=== PATIENT | female | born 1995 | race Caucasian/White ===

== ENCOUNTER 2022-06-29 14:44 | Emergency (ER) | payer MEDICAID ==
[~2022-06-29] VITALS: Ht 154.9 cm; Wt 74.1 kg
[~2022-06-29 14:44] MED LIST: ALPR-623 PO; LORA1TAB PO; METO10TA3 PO; ONDA4TAB59 PO
[2022-06-29 15:52] LABS: URINE HCG NEGATIVE (NEG)
[2022-06-29 15:58] LABS: BASOPHILS % (AUTO) 0.4 % (0-1); EOSINOPHILS # (AUTO) 0.3 X10'3 (0-0.9); EOSINOPHILS % (AUTO) 3.9 % (0-6); HEMOGLOBIN 13.6 g/dl (12.0-16.0); LYMPHOCYTES # (AUTO) 1.6 X10'3 (1.1-4.8); LYMPHOCYTES % (AUTO) 19.8 % (21-51); MEAN CORPUSCULAR HEMOGLOBIN 29.6 PG (27.0-31.0); MEAN CORPUSCULAR HGB CONC 34.1 g/dL (33.0-36.5); MEAN CORPUSCULAR VOLUME 86.8 FL (78-98); MEAN PLATELET VOLUME 9.2 FL (7.4-10.4); MONOCYTES % (AUTO) 12.1 % (2-12); NEUTROPHILS # (AUTO) 5.2 X10'3 (1.8-7.7); NEUTROPHILS % (AUTO) 63.8 % (42-75); PLATELET COUNT 217 X10'3 (140-440); RED BLOOD COUNT 4.61 X10'6 (4.20-5.60); WHITE BLOOD COUNT 8.1 X10'3 (4.5-11.0)
[2022-06-29 16:02] LABS: CLARITY,URINE CLEAR (Clear); COLOR,URINE YELLOW (Yellow); GLUCOSE, URINE NEGATIVE (Neg); KETONES,URINE NEGATIVE (Neg); LEUKOCYTE ESTERASE ,URINE NEGATIVE (Neg); NITRITES, URINE NEGATIVE (Neg); OCCULT BLOOD,URINE TRACE-INTACT (Neg); PH,URINE 6.5 (4.8-8.0); PROTEIN,URINE NEGATIVE (Neg); UROBILINOGEN,URINE 0.2 E.U/dL (0.2-1.0)
[2022-06-29 16:06] LABS: UA COLLECTION TYPE CLN CATCH MIDSTREAM
[2022-06-29 16:12] LABS: MUCUS STRANDS FEW /LPF (Neg); SQUAMOUS EPITHELIAL CELL,UR FEW /LPF (FEW)
[2022-06-29 16:13] LABS: BACTERIA,URINE FEW /HPF (Neg); RBC,URINE 0-2 /HPF (0-2); WBC,URINE 0-4 /HPF (0-4)
[2022-06-29 16:16] LABS: ALANINE AMINOTRANSFERASE 15 U/L (12-78); ALBUMIN/GLOBULIN RATIO 1.1 (1.1-1.5); ALKALINE PHOSPHATASE 91 IU/L (46-116); ANION GAP 6 (8-16); ASPARTATE AMINO TRANSFERASE 22 U/L (10-37); BILIRUBIN,TOTAL 0.3 MG/DL (0.1-1.0); BLOOD UREA NITROGEN 9 MG/DL (7-18); BUN/CREATININE RATIO 12.3 (6.6-38.0); CALCIUM 8.4 MG/DL (8.5-10.1); CHLORIDE 105 MMOL/L (99-107); CREATININE 0.73 MG/DL (0.40-0.90); GLUCOSE 81 MG/DL (70-104); LIPASE 94 U/L (73-393); POTASSIUM 3.6 MMOL/L (3.5-5.1); SODIUM 138 MMOL/L (135-145); TOTAL CARBON DIOXIDE 26.8 MMOL/L (24-32); TOTAL PROTEIN 7.5 G/DL (6.4-8.2); eGFR > 90 ML/MIN
[2022-06-29] MEDS ORDERED: iohexol 300mg/ml 100ml inj. ONE (17:48)
[2022-06-29] MEDS ORDERED: fentaNYL/PF 50MCG/1 ML 2ML syringe IV ONE (18:40)
[2022-06-29] MEDS ORDERED: ondansetron/PF 4mg/2ml inj IV ONE (18:40)
[2022-06-29 18:50] VITALS: BP 111/67
[2022-06-29] MEDS ORDERED: HYDROcodone/acetaminophen 10/325mg tab PO ONE (18:50)
== END 2022-06-29 22:30 | disposition home or self-care (01) ==
LOC: ER 14:45
DX: D26.9 Other benign neoplasm of uterus, unspecified (principal); Z20.822 Contact with and (suspected) exposure to COVID-19; R10.32 Left lower quadrant pain; J45.909 Unspecified asthma, uncomplicated; F41.9 Anxiety disorder, unspecified; G89.29 Other chronic pain; F15.90 Other stimulant use, unspecified, uncomplicated; F11.90 Opioid use, unspecified, uncomplicated; Z90.49 Acquired absence of other specified parts of digestive tract; Z98.890 Other specified postprocedural states; Z88.5 Allergy status to narcotic agent; Z79.899 Other long term (current) drug therapy
CPT/HCPCS: 36415; 74177; 80053; 81001; 81025; 83690; 85025; 87635; 96374; 99285; C9803; J2405; J3490; Q9967

== ENCOUNTER 2022-09-07 21:44 | Emergency (ER) | payer MEDICAID ==
[~2022-09-07] VITALS: Ht 154.9 cm; Wt 74.1 kg
[2022-09-07 22:11] LABS: BASOPHILS % (AUTO) 0.3 % (0-1); EOSINOPHILS # (AUTO) 0.2 X10'3 (0-0.9); EOSINOPHILS % (AUTO) 3.1 % (0-6); HEMATOCRIT 40.2 % (35.0-45.0); HEMOGLOBIN 13.5 g/dl (12.0-16.0); LYMPHOCYTES # (AUTO) 2.4 X10'3 (1.1-4.8); LYMPHOCYTES % (AUTO) 29.2 % (21-51); MEAN CORPUSCULAR HEMOGLOBIN 29.8 PG (27.0-31.0); MEAN CORPUSCULAR HGB CONC 33.6 g/dL (33.0-36.5); MEAN CORPUSCULAR VOLUME 88.7 FL (78-98); MEAN PLATELET VOLUME 8.6 FL (7.4-10.4); MONOCYTES # (AUTO) 0.7 X10'3 (0-0.9); MONOCYTES % (AUTO) 8.7 % (2-12); NEUTROPHILS # (AUTO) 4.7 X10'3 (1.8-7.7); NEUTROPHILS % (AUTO) 58.7 % (42-75); PLATELET COUNT 255 X10'3 (140-440); RED BLOOD COUNT 4.53 X10'6 (4.20-5.60); RED CELL DISTRIBUTION WIDTH 13.8 % (11.5-14.5); WHITE BLOOD COUNT 8.1 X10'3 (4.5-11.0)
[2022-09-07 22:14] LABS: URINE HCG NEGATIVE (NEG)
[2022-09-07 22:15] LABS: CLARITY,URINE CLOUDY (Clear); COLOR,URINE YELLOW (Yellow); GLUCOSE, URINE NEGATIVE (Neg); KETONES,URINE NEGATIVE (Neg); LEUKOCYTE ESTERASE ,URINE NEGATIVE (Neg); NITRITES, URINE NEGATIVE (Neg); OCCULT BLOOD,URINE TRACE-INTACT (Neg); PROTEIN,URINE NEGATIVE (Neg); UROBILINOGEN,URINE 0.2 E.U/dL (0.2-1.0)
[2022-09-07 22:16] LABS: UA COLLECTION TYPE CLN CATCH MIDSTREAM
[2022-09-07 22:21] LABS: BACTERIA,URINE NONE SEEN /HPF (Neg); RBC,URINE 0-2 /HPF (0-2); SQUAMOUS EPITHELIAL CELL,UR MANY /LPF (FEW); WBC,URINE 0-4 /HPF (0-4)
[2022-09-07 22:34] LABS: ALANINE AMINOTRANSFERASE 14 U/L (12-78); ALBUMIN 4.1 G/DL (3.4-5.0); ALBUMIN/GLOBULIN RATIO 1.1 (1.1-1.5); ALKALINE PHOSPHATASE 78 IU/L (46-116); ANION GAP 8 (8-16); ASPARTATE AMINO TRANSFERASE 18 U/L (10-37); BILIRUBIN,TOTAL 0.4 MG/DL (0.1-1.0); BLOOD UREA NITROGEN 11 MG/DL (7-18); BUN/CREATININE RATIO 15.5 (10.0-20.0); CALCIUM 8.6 MG/DL (8.5-10.1); CHLORIDE 104 MMOL/L (99-107); CREATININE 0.71 MG/DL (0.40-0.90); GLUCOSE 84 MG/DL (70-104); LIPASE 63 U/L (73-393); POTASSIUM 3.8 MMOL/L (3.5-5.1); SODIUM 137 MMOL/L (135-145); TOTAL CARBON DIOXIDE 24.6 MMOL/L (24-32); TOTAL PROTEIN 7.7 G/DL (6.4-8.2); eGFR > 90 ML/MIN
[2022-09-08] MEDS ORDERED: ondansetron 4mg rapidly disintigrating tab PO ONE (02:05)
[2022-09-08] MEDS ORDERED: HYDROcodone/acetaminophen 5mg/325mg tablet PO ONE (02:05)
[2022-09-08] MEDS ORDERED: ketorolac trometh inj. 60 MG/2 ML VIAL IM ONE (02:45)
[2022-09-08] MEDS ORDERED: DICY10CA14 PO (04:00)
[2022-09-08] MEDS ORDERED: PHEN16.234 PO (04:00)
[2022-09-08] MEDS ORDERED: phenobarb/hyoscy/atropine/scop (Donnatal) 16.2mg tablet PO PRN (04:10)
[2022-09-08 04:23] VITALS: BP 128/68
== END 2022-09-08 04:27 | disposition home or self-care (01) ==
LOC: ER 21:45
DX: R10.9 Unspecified abdominal pain (principal); R11.2 Nausea with vomiting, unspecified; F41.9 Anxiety disorder, unspecified; J45.909 Unspecified asthma, uncomplicated; G89.29 Other chronic pain; F12.10 Cannabis abuse, uncomplicated; Z88.5 Allergy status to narcotic agent; Z79.899 Other long term (current) drug therapy
CPT/HCPCS: 36415; 76700; 80053; 81001; 81025; 83690; 85025; 96372; 99285; J1885

== ENCOUNTER 2022-09-09 20:54 | Emergency (ER) | payer MEDICAID ==
[~2022-09-09] VITALS: Ht 154.9 cm; Wt 74.0 kg
[~2022-09-09 20:54] MED LIST changes: +DICY10CA14 PO; +PHEN16.234 PO
[2022-09-09 20:57] VITALS: BP 125/76
[2022-09-09 21:34] LABS: BASOPHILS % (AUTO) 0.4 % (0-1); EOSINOPHILS # (AUTO) 0.3 X10'3 (0-0.9); HEMATOCRIT 36.8 % (35.0-45.0); HEMOGLOBIN 12.4 g/dl (12.0-16.0); LYMPHOCYTES # (AUTO) 2.1 X10'3 (1.1-4.8); LYMPHOCYTES % (AUTO) 24.1 % (21-51); MEAN CORPUSCULAR HEMOGLOBIN 29.8 PG (27.0-31.0); MEAN CORPUSCULAR HGB CONC 33.9 g/dL (33.0-36.5); MEAN CORPUSCULAR VOLUME 88.1 FL (78-98); MEAN PLATELET VOLUME 8.5 FL (7.4-10.4); MONOCYTES # (AUTO) 0.7 X10'3 (0-0.9); MONOCYTES % (AUTO) 8.6 % (2-12); NEUTROPHILS # (AUTO) 5.5 X10'3 (1.8-7.7); NEUTROPHILS % (AUTO) 63.9 % (42-75); PLATELET COUNT 245 X10'3 (140-440); RED BLOOD COUNT 4.17 X10'6 (4.20-5.60); RED CELL DISTRIBUTION WIDTH 13.4 % (11.5-14.5); WHITE BLOOD COUNT 8.6 X10'3 (4.5-11.0)
[2022-09-09 21:46] LABS: ALANINE AMINOTRANSFERASE 11 U/L (12-78); ALBUMIN 3.7 G/DL (3.4-5.0); ALBUMIN/GLOBULIN RATIO 1.2 (1.1-1.5); ALKALINE PHOSPHATASE 79 IU/L (46-116); ANION GAP 8 (8-16); ASPARTATE AMINO TRANSFERASE 16 U/L (10-37); BILIRUBIN,TOTAL 0.2 MG/DL (0.1-1.0); BLOOD UREA NITROGEN 14 MG/DL (7-18); BUN/CREATININE RATIO 21.5 (10.0-20.0); CALCIUM 8.3 MG/DL (8.5-10.1); CHLORIDE 105 MMOL/L (99-107); CREATININE 0.65 MG/DL (0.40-0.90); GLUCOSE 89 MG/DL (70-104); LIPASE 87 U/L (73-393); SODIUM 140 MMOL/L (135-145); TOTAL CARBON DIOXIDE 27.4 MMOL/L (24-32); TOTAL PROTEIN 6.9 G/DL (6.4-8.2); eGFR > 90 ML/MIN
[2022-09-09] MEDS ORDERED: mag hydrox/Alum hydrox/simeth 30ml oral suspension PO ONE (23:00)
[2022-09-09] MEDS ORDERED: dicyclomine 10 MG capsule PO ONE (23:00)
[2022-09-09] MEDS ORDERED: LIDOcaine Viscous 15ml cup TP ONE (23:00)
[2022-09-09 23:02] LABS: URINE HCG NEGATIVE (NEG)
[2022-09-09] MEDS ORDERED: iohexol 300mg/ml 100ml inj. ONE (23:03)
[2022-09-09 23:08] LABS: CLARITY,URINE SLIGHTLY CLOUDY (Clear); COLOR,URINE YELLOW (Yellow); GLUCOSE, URINE NEGATIVE (Neg); KETONES,URINE NEGATIVE (Neg); LEUKOCYTE ESTERASE ,URINE NEGATIVE (Neg); NITRITES, URINE NEGATIVE (Neg); OCCULT BLOOD,URINE NEGATIVE (Neg); PH,URINE 6.5 (4.8-8.0); PROTEIN,URINE NEGATIVE (Neg); UROBILINOGEN,URINE 0.2 E.U/dL (0.2-1.0)
[2022-09-09 23:20] LABS: UA COLLECTION TYPE CLN CATCH MIDSTREAM
[2022-09-09 23:22] LABS: BACTERIA,URINE 1+ /HPF (Neg); MUCUS STRANDS MODERATE /LPF (Neg); RBC,URINE NONE SEEN /HPF (0-2); SQUAMOUS EPITHELIAL CELL,UR MANY /LPF (FEW); WBC,URINE 0-4 /HPF (0-4)
== END 2022-09-10 03:00 | disposition home or self-care (01) ==
LOC: ER 20:55
DX: R10.31 Right lower quadrant pain (principal); R11.0 Nausea; G89.29 Other chronic pain; J45.909 Unspecified asthma, uncomplicated; F10.90 Alcohol use, unspecified, uncomplicated; Z90.49 Acquired absence of other specified parts of digestive tract; Z98.890 Other specified postprocedural states; Z88.5 Allergy status to narcotic agent; Z79.899 Other long term (current) drug therapy
CPT/HCPCS: 36415; 74177; 80053; 81001; 81025; 83690; 85025; 99285; Q9967

== ENCOUNTER 2022-10-23 06:50 | Emergency (ER) | payer MEDICAID ==
[~2022-10-23] VITALS: Ht 154.9 cm; Wt 78.6 kg
[~2022-10-23 06:50] MED LIST changes: -ALPR-623 PO; +BUSP10TA10 PO; -DICY10CA14 PO; +DICY10CA88 PO; +ESCI20TA39 PO; -LORA1TAB PO; -METO10TA3 PO; +NICO-907 BC; -ONDA4TAB59 PO; +PRAZ1CAP5 PO; +TRAZ-251 PO
[2022-10-23] MEDS ORDERED: ketorolac trometh inj. 60 MG/2 ML VIAL IM ONE (08:35)
[2022-10-23] MEDS ORDERED: acetaminophen 325mg tablet PO ONE (08:35)
[2022-10-23] MEDS ORDERED: IBUP-1984 PO (08:38)
[2022-10-23] MEDS ORDERED: PRED20TA PO (08:38)
[2022-10-23] MEDS ORDERED: ACET-1025 PO (08:38)
[2022-10-23 09:00] VITALS: BP 130/78
== END 2022-10-23 09:03 | disposition home or self-care (01) ==
LOC: ER 06:51
DX: M79.602 Pain in left arm (principal); J45.909 Unspecified asthma, uncomplicated; F12.90 Cannabis use, unspecified, uncomplicated; Z91.09 Other allergy status, other than to drugs and biological substances; Z88.5 Allergy status to narcotic agent; Z98.890 Other specified postprocedural states
CPT/HCPCS: 96372; 99283; J1885

== ENCOUNTER 2022-11-07 00:47 | Emergency (ER) | payer MEDICAID ==
[~2022-11-07] VITALS: Ht 154.9 cm; Wt 74.0 kg
[~2022-11-07 00:47] MED LIST changes: +IBUP-1984 PO
[2022-11-07] MEDS ORDERED: Melatonin 3mg tablet PO ONE (01:40)
[2022-11-07] MEDS ORDERED: metoclopramide 10mg tablet PO ONE (01:40)
[2022-11-07] MEDS ORDERED: diphenhydrAMINE 25mg capsule PO ONE (01:40)
--- NOTE | 2022-11-07 06:45 | NUR ---
PT RESTING IN BED QUIETLY ,NO DISTRESS NTED ,WILL CONTTO MONITOR.
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
[2022-11-07 07:34] VITALS: BP 132/64
== END 2022-11-07 07:37 | disposition home or self-care (01) ==
LOC: ER 00:48
DX: F41.9 Anxiety disorder, unspecified (principal); F10.129 Alcohol abuse with intoxication, unspecified; J45.909 Unspecified asthma, uncomplicated; F12.90 Cannabis use, unspecified, uncomplicated; G89.29 Other chronic pain; Z90.49 Acquired absence of other specified parts of digestive tract; Z72.89 Other problems related to lifestyle; Z98.890 Other specified postprocedural states; Z88.5 Allergy status to narcotic agent; Z88.8 Allergy status to other drugs, medicaments and biological substances; Z79.899 Other long term (current) drug therapy; Y90.9 Presence of alcohol in blood, level not specified
CPT/HCPCS: 99284; Q0163

== ENCOUNTER 2022-11-23 01:37 | Emergency (ER) | payer MEDICAID ==
[~2022-11-23] VITALS: Ht 154.9 cm; Wt 74.1 kg
[2022-11-23 02:10] LABS: URINE HCG NEGATIVE (NEG)
[2022-11-23 02:16] LABS: COLOR,URINE YELLOW (Yellow); GLUCOSE, URINE NEGATIVE (Neg); KETONES,URINE NEGATIVE (Neg); LEUKOCYTE ESTERASE ,URINE NEGATIVE (Neg); NITRITES, URINE NEGATIVE (Neg); OCCULT BLOOD,URINE SMALL (Neg); PROTEIN,URINE NEGATIVE (Neg); UROBILINOGEN,URINE 0.2 E.U/dL (0.2-1.0)
[2022-11-23 02:16] LABS: BASOPHILS # (AUTO) 0.1 X10'3 (0-0.2); BASOPHILS % (AUTO) 0.4 % (0-1); EOSINOPHILS # (AUTO) 0.1 X10'3 (0-0.9); HEMATOCRIT 42.8 % (35.0-45.0); HEMOGLOBIN 14.3 g/dl (12.0-16.0); LYMPHOCYTES # (AUTO) 3.7 X10'3 (1.1-4.8); LYMPHOCYTES % (AUTO) 27.3 % (21-51); MEAN CORPUSCULAR HEMOGLOBIN 28.8 PG (27.0-31.0); MEAN CORPUSCULAR HGB CONC 33.4 g/dL (33.0-36.5); MEAN CORPUSCULAR VOLUME 86.3 FL (78-98); MEAN PLATELET VOLUME 7.9 FL (7.4-10.4); MONOCYTES # (AUTO) 1.2 X10'3 (0-0.9); MONOCYTES % (AUTO) 8.7 % (2-12); NEUTROPHILS # (AUTO) 8.5 X10'3 (1.8-7.7); NEUTROPHILS % (AUTO) 62.6 % (42-75); PLATELET COUNT 299 X10'3 (140-440); RED BLOOD COUNT 4.96 X10'6 (4.20-5.60); RED CELL DISTRIBUTION WIDTH 13.8 % (11.5-14.5); WHITE BLOOD COUNT 13.6 X10'3 (4.5-11.0)
[2022-11-23 02:17] LABS: ALANINE AMINOTRANSFERASE 21 U/L (12-78); ALBUMIN 4.2 G/DL (3.4-5.0); ALBUMIN/GLOBULIN RATIO 1.2 (1.1-1.5); ALKALINE PHOSPHATASE 84 IU/L (46-116); ANION GAP 14 (8-16); ASPARTATE AMINO TRANSFERASE 20 U/L (10-37); BILIRUBIN,TOTAL 0.3 MG/DL (0.1-1.0); BLOOD UREA NITROGEN 8 MG/DL (7-18); BUN/CREATININE RATIO 9.4 (10.0-20.0); CALCIUM 8.5 MG/DL (8.5-10.1); CHLORIDE 107 MMOL/L (99-107); CREATININE 0.85 MG/DL (0.40-0.90); ETHANOL 0.249 GM/DL (0.0-0.010); GLUCOSE 95 MG/DL (70-104); POTASSIUM 3.2 MMOL/L (3.5-5.1); SODIUM 141 MMOL/L (135-145); TOTAL CARBON DIOXIDE 20.3 MMOL/L (24-32); TOTAL PROTEIN 7.8 G/DL (6.4-8.2); eGFR 79 ML/MIN
[2022-11-23 02:23] LABS: UA COLLECTION TYPE CLN CATCH MIDSTREAM
[2022-11-23 02:25] LABS: CLARITY,URINE SLIGHTLY CLOUDY (Clear)
[2022-11-23 02:28] LABS: BACTERIA,URINE FEW /HPF (Neg); SQUAMOUS EPITHELIAL CELL,UR FEW /LPF (FEW); WBC,URINE 0-4 /HPF (0-4)
[2022-11-23] MEDS ORDERED: LORazepam 2 mg/ml vial IM STA (02:28)
[2022-11-23 02:29] LABS: MUCUS STRANDS NONE SEEN /LPF (Neg)
[2022-11-23 02:30] LABS: URINE AMPHETAMINE SCREEN NEGATIVE (Neg); URINE BARBITUATE SCREEN NEGATIVE (Neg); URINE BENZODIAZEPINES SCREEN NEGATIVE (Neg); URINE CANNABINOID SCREEN POSITIVE (Neg); URINE COCAINE SCREEN POSITIVE (Neg); URINE METHADONE SCREEN NEGATIVE (Neg); URINE OPIATE SCREEN NEGATIVE (Neg); URINE PHENCYCLIDINE SCREEN NEGATIVE (Neg)
[2022-11-23] MEDS ORDERED: TETanus/Pertussis (Acell)/Diphther VAC/PF (Tdap-Adult) 0.5ml syringe IMVAC ONE (02:30)
[2022-11-23] MEDS ORDERED: bacitracin 15gm ointment TP STA (02:34)
--- NOTE | 2022-11-23 02:58 | NUR ---
PT IS PERSISTANTLY ASKING TO CALL MOTHER. PT HAS BEEN INFORMED THAT SHE CAN CALL HER MOTHER IN THE MORNING. PT IS HYSTERICAL AND TALKING TO HERSELF IN THE ROOM. PT HAS RECIEVED 2MG ATIVAN IM FOR ANXIETY/AGITATION. PTS WOUNDS HAVE BEEN CLEANED AND BANDAGED.
--- NOTE | 2022-11-23 07:10 | NUR ---
Pt. ambulated over to ER Overflow from the main ER accompanied by Tech. She is in bed sleeping at this time, rr are even and unlabored.
[2022-11-23] MEDS ORDERED: acetaminophen 325mg tablet PO ONE (08:20)
[2022-11-23] MEDS ORDERED: POTASSIUM BICARB 20meq eff tab 20 MEQ TABLET.EFF PO ONE (08:20)
--- NOTE | 2022-11-23 08:49 | NUR ---
[facility] RECIEVED PT PACKET
--- NOTE | 2022-11-23 09:00 | NUR ---
Pt. had a decreased potassium level of 3.2 and this was endorsed to Dr. Barrett and received orders for 40mEq of potassium. Pt. also complained of pain in her right hand due to the abrasion she received at this area from previously punching a mirror and she was provided with 650mg of Tylenol with effectiveness. Abrasion on top of pt's right hand appears to be healing well and no open areas or s/s of infection were noted. Antibiotic ointment and a Band Aide were applied. 1:1 was completed at bedside, and pt. was cooperative with assessment. She continues to endorse S/I with a plan to overdose, and states, "I've just been really going through it lately." Pt. reports she had a similar episode in September of this year. Pt. was evaluated for any signs and symptoms of alcohol withdrawal and none were found to be present. Pt's v/s are WNL, she does not exhibit any anxiety, denies headache, no tremors present, and pt. denies any auditory or visual hallucinations. She continues to nap comfortably, will continue to monitor pt. closely.
--- NOTE | 2022-11-23 09:15 | NUR ---
FAXED 1190 FORM .
--- NOTE | 2022-11-23 10:18 | NUR ---
Pt's mother is at bedside visiting at this time.
[2022-11-23] MEDS ORDERED: NO HOME MEDS (10:24)
--- NOTE | 2022-11-23 11:00 | NUR ---
Pt. is napping at this time, rise and fall of chest noted.
--- NOTE | 2022-11-23 13:00 | NUR ---
Pt. is laying in bed awake at this time, no s/s of distress noted.
--- NOTE | 2022-11-23 14:26 | NUR ---
pt sleeping on right side, equal, non-labored respirations.
--- NOTE | 2022-11-23 14:51 | NUR ---
[facility] AT BEDSIDE EVALUATING PT.
[2022-11-23 16:00] VITALS: BP 126/85
--- NOTE | 2022-11-23 17:00 | NUR ---
Pt. is sitting up eating dinner at this time.
--- NOTE | 2022-11-23 17:46 | NUR ---
[facility] called regarding possible placement for patient. Addendum: 11/23/22 at 1756 by JUNE Pt. has been accepted.
--- NOTE | 2022-11-23 18:06 | NUR ---
TSH lab faxed to [facility] per request. Pt. was accepted at [facility] and will be leaving tomorrow morning. They will call back with a time. Accepting MD is Win Sol Fan.
[2022-11-23] MEDS ORDERED: chlordiazePOXIDE 25mg capsule PO ONE (21:20)
--- NOTE | 2022-11-23 21:20 | NUR ---
PT C/O FEELING ANXIOUS, SHAKEY, INSOMNIA. PT SAID SHE BINGE DRINKS, HAS BEEN DRINKING 750ML KIRILL, VODKA, A DAY FOR 3 WEEKS, LAST DRINK WAS YESTERDAY, DR ARSHAD AWARE AND WILL PLACE ORDER. PT SAID SHE STILL FEELS SUICIDAL AND PLANS TO OD ON MEDS. PT SAID SHE HAS BEEN OFF MEDS FOR 30 DAYS. PT IS TEARFUL, CALM, COOPERATIVE
--- NOTE | 2022-11-23 21:23 | NUR ---
PT IS GETTING DRESSED, [facility]
== END 2022-11-23 21:41 | disposition still patient (30) ==
LOC: ER 01:37
DX: R45.851 Suicidal ideations (principal); Z20.822 Contact with and (suspected) exposure to COVID-19; F10.129 Alcohol abuse with intoxication, unspecified; F19.10 Other psychoactive substance abuse, uncomplicated; Y90.9 Presence of alcohol in blood, level not specified; F41.9 Anxiety disorder, unspecified; G89.29 Other chronic pain; F12.10 Cannabis abuse, uncomplicated; Z90.49 Acquired absence of other specified parts of digestive tract; Z79.899 Other long term (current) drug therapy; Z88.5 Allergy status to narcotic agent
CPT/HCPCS: 36415; 80053; 80305; 80320; 81001; 81025; 84443; 85025; 87811; 90471; 90715; 96372; 99285; J2060

== ENCOUNTER 2023-06-11 17:38 | Emergency (ER) | payer MEDICAID ==
[~2023-06-11] VITALS: Ht 152.4 cm; Wt 96.0 kg
[~2023-06-11 17:38] MED LIST changes: -BUSP10TA10 PO; -DICY10CA88 PO; -ESCI20TA39 PO; -IBUP-1984 PO; -NICO-907 BC; +NO HOME MEDS; -PHEN16.234 PO; -PRAZ1CAP5 PO; -TRAZ-251 PO
[2023-06-11] MEDS ORDERED: normal saline 1000ML IV soln IVB ONE (18:25)
[2023-06-11 19:11] LABS: BASOPHILS # (AUTO) 0.1 X10'3 (0-0.2); BASOPHILS % (AUTO) 1.6 % (0-1); EOSINOPHILS # (AUTO) 0.1 X10'3 (0-0.9); EOSINOPHILS % (AUTO) 1.2 % (0-6); HEMOGLOBIN 15.3 g/dl (12.0-16.0); LYMPHOCYTES % (AUTO) 23.5 % (21-51); MEAN CORPUSCULAR HEMOGLOBIN 29.3 PG (27.0-31.0); MEAN CORPUSCULAR HGB CONC 32.6 g/dL (33.0-36.5); MEAN CORPUSCULAR VOLUME 90.1 FL (78-98); MEAN PLATELET VOLUME 8.1 FL (7.4-10.4); MONOCYTES # (AUTO) 0.8 X10'3 (0-0.9); MONOCYTES % (AUTO) 9.5 % (2-12); NEUTROPHILS # (AUTO) 5.6 X10'3 (1.8-7.7); NEUTROPHILS % (AUTO) 64.2 % (42-75); PLATELET COUNT 302 X10'3 (140-440); RED BLOOD COUNT 5.21 X10'6 (4.20-5.60); RED CELL DISTRIBUTION WIDTH 15.9 % (11.5-14.5); WHITE BLOOD COUNT 8.7 X10'3 (4.5-11.0)
[2023-06-11 19:14] LABS: BILIRUBIN,URINE NEGATIVE (Neg); CLARITY,URINE CLOUDY (Clear); COLOR,URINE YELLOW (Yellow); GLUCOSE, URINE NEGATIVE (Neg); KETONES,URINE NEGATIVE (Neg); LEUKOCYTE ESTERASE ,URINE NEGATIVE (Neg); NITRITES, URINE NEGATIVE (Neg); OCCULT BLOOD,URINE NEGATIVE (Neg); PROTEIN,URINE NEGATIVE (Neg); UROBILINOGEN,URINE 0.2 E.U/dL (0.2-1.0)
[2023-06-11 19:19] LABS: UA COLLECTION TYPE CLN CATCH MIDSTREAM
[2023-06-11 19:20] LABS: BACTERIA,URINE 1+ /HPF (Neg); MUCUS STRANDS MANY /LPF (Neg); RBC,URINE 0-2 /HPF (0-2); SQUAMOUS EPITHELIAL CELL,UR MANY /LPF (FEW); WBC,URINE 0-4 /HPF (0-4)
[2023-06-11 19:21] LABS: ALANINE AMINOTRANSFERASE 58 U/L (12-78); ALBUMIN 4.3 G/DL (3.4-5.0); ALKALINE PHOSPHATASE 105 IU/L (46-116); ANION GAP 11 (8-16); ASPARTATE AMINO TRANSFERASE 50 U/L (10-37); BILIRUBIN,TOTAL 0.3 MG/DL (0.1-1.0); BLOOD UREA NITROGEN 10 MG/DL (7-18); BUN/CREATININE RATIO 14.5 (10.0-20.0); CHLORIDE 103 MMOL/L (99-107); CREATININE 0.69 MG/DL (0.40-0.90); GLUCOSE 79 MG/DL (70-104); POTASSIUM 3.8 MMOL/L (3.5-5.1); SODIUM 141 MMOL/L (135-145); TOTAL PROTEIN 8.6 G/DL (6.4-8.2); eCRCL 86 ML/MIN; eGFR > 90 ML/MIN
[2023-06-11 19:24] LABS: ETHANOL 73 MG/DL (<10); LIPASE 20 U/L (16-77)
[2023-06-11 19:25] LABS: HCG SERUM QL NEGATIVE
[2023-06-11 19:27] LABS: URINE AMPHETAMINE SCREEN NEGATIVE (Neg); URINE BARBITUATE SCREEN NEGATIVE (Neg); URINE BENZODIAZEPINES SCREEN POSITIVE (Neg); URINE CANNABINOID SCREEN POSITIVE (Neg); URINE COCAINE SCREEN POSITIVE (Neg); URINE METHADONE SCREEN NEGATIVE (Neg); URINE OPIATE SCREEN NEGATIVE (Neg); URINE PHENCYCLIDINE SCREEN NEGATIVE (Neg)
[2023-06-11] MEDS ORDERED: phenobarbital inj 130 MG in normal saline 100ml IV soln 99 ML IV SCH (20:00)
[2023-06-11] MEDS ORDERED: phenobarbital inj 130 MG in normal saline 100ml IV soln 99 ML IV ONE ×2 (20:58→21:45)
[2023-06-11] MEDS ORDERED: chlordiazePOXIDE 25mg capsule PO ONE (22:45)
[2023-06-11 22:56] VITALS: BP 121/70; PULSE 110; RESP 18; TEMP 98.6; O2SAT 100
[2023-06-12] MEDS ORDERED: phenobarbital inj 130 MG in normal saline 100ml IV soln 99 ML IV SCH ×4 (08:00)
== END 2023-06-11 22:58 | disposition home or self-care (01) ==
LOC: ER 17:39
DX: F10.239 Alcohol dependence with withdrawal, unspecified (principal); R51.9 Headache, unspecified; R11.0 Nausea; F41.9 Anxiety disorder, unspecified; J45.909 Unspecified asthma, uncomplicated; G89.29 Other chronic pain; F12.90 Cannabis use, unspecified, uncomplicated; F11.90 Opioid use, unspecified, uncomplicated; Z90.49 Acquired absence of other specified parts of digestive tract; Z98.890 Other specified postprocedural states; Z88.5 Allergy status to narcotic agent; Z91.048 Other nonmedicinal substance allergy status; Y90.3 Blood alcohol level of 60-79 mg/100 ml
CPT/HCPCS: 36415; 71045; 80053; 80184; 80305; 80320; 81001; 82140; 82948; 83605; 83690; 84484; 84703; 85025; 93005; 96361; 96365; 96366; 99285; J2560; J3490; J7030

== ENCOUNTER 2023-06-13 21:32 | Emergency (ER) | payer MEDICAID ==
[~2023-06-13] VITALS: Ht 154.9 cm; Wt 94.1 kg
[2023-06-13 23:03] LABS: HEMOGLOBIN 14.8 g/dl (12.0-16.0); RED CELL DISTRIBUTION WIDTH 16.1 % (11.5-14.5)
[2023-06-13 23:05] LABS: BASOPHILS % (AUTO) 0.5 % (0-1); EOSINOPHILS # (AUTO) 0.1 X10'3 (0-0.9); EOSINOPHILS % (AUTO) 1.5 % (0-6); HEMATOCRIT 44.3 % (35.0-45.0); LYMPHOCYTES # (AUTO) 2.3 X10'3 (1.1-4.8); LYMPHOCYTES % (AUTO) 30.4 % (21-51); MEAN CORPUSCULAR HGB CONC 33.3 g/dL (33.0-36.5); MEAN CORPUSCULAR VOLUME 89.9 FL (78-98); MONOCYTES # (AUTO) 0.8 X10'3 (0-0.9); MONOCYTES % (AUTO) 10.9 % (2-12); NEUTROPHILS # (AUTO) 4.4 X10'3 (1.8-7.7); NEUTROPHILS % (AUTO) 56.7 % (42-75); PLATELET COUNT 286 X10'3 (140-440); RED BLOOD COUNT 4.93 X10'6 (4.20-5.60); WHITE BLOOD COUNT 7.7 X10'3 (4.5-11.0)
[2023-06-13] MEDS ORDERED: LORazepam 2 mg/ml vial IV ONE (23:05)
[2023-06-13] MEDS ORDERED: LORazepam 1 MG tablet PO ONE (23:20)
[2023-06-13] MEDS ORDERED: normal saline 1000ml 1,000 ML IV ONE (23:25)
[2023-06-13 23:26] LABS: ALANINE AMINOTRANSFERASE 44 U/L (12-78); ALKALINE PHOSPHATASE 100 IU/L (46-116); ANION GAP 8 (8-16); ASPARTATE AMINO TRANSFERASE 39 U/L (10-37); BILIRUBIN,TOTAL 0.2 MG/DL (0.1-1.0); BLOOD UREA NITROGEN 7 MG/DL (7-18); BUN/CREATININE RATIO 10.3 (10.0-20.0); CALCIUM 8.8 MG/DL (8.5-10.1); CHLORIDE 104 MMOL/L (99-107); CREATININE 0.68 MG/DL (0.40-0.90); ETHANOL 138 MG/DL (<10); GLUCOSE 92 MG/DL (70-104); POTASSIUM 3.9 MMOL/L (3.5-5.1); SALICYLATE 1.8 MG/DL (4.0-20.0); SODIUM 141 MMOL/L (135-145); THYROID STIMULATING HORMONE 2.13 ulU/ml (0.34-4.50); TOTAL CARBON DIOXIDE 29.2 MMOL/L (24-32); TOTAL PROTEIN 8.2 G/DL (6.4-8.2); eCRCL 91 ML/MIN; eGFR > 90 ML/MIN
[2023-06-13 23:41] LABS: ACETAMINOPHEN < 2.0 UG/ML (10-30)
[2023-06-14 00:50] LABS: URINE HCG NEGATIVE (NEG)
[2023-06-14 00:51] LABS: BILIRUBIN,URINE NEGATIVE (Neg); CLARITY,URINE SLIGHTLY CLOUDY (Clear); COLOR,URINE YELLOW (Yellow); GLUCOSE, URINE NEGATIVE (Neg); KETONES,URINE NEGATIVE (Neg); LEUKOCYTE ESTERASE ,URINE TRACE (Neg); NITRITES, URINE NEGATIVE (Neg); OCCULT BLOOD,URINE TRACE-INTACT (Neg); PH,URINE 6.5 (4.8-8.0); PROTEIN,URINE NEGATIVE (Neg); UROBILINOGEN,URINE 0.2 E.U/dL (0.2-1.0)
[2023-06-14 00:52] LABS: UA COLLECTION TYPE CLN CATCH MIDSTREAM
[2023-06-14 00:58] LABS: BACTERIA,URINE 1+ /HPF (Neg); MUCUS STRANDS MANY /LPF (Neg); RBC,URINE 0-2 /HPF (0-2); RENAL CELLS, URINE FEW /HPF; SQUAMOUS EPITHELIAL CELL,UR MANY /LPF (FEW); WBC,URINE 0-4 /HPF (0-4)
[2023-06-14 01:09] LABS: URINE AMPHETAMINE SCREEN NEGATIVE (Neg); URINE BARBITUATE SCREEN POSITIVE (Neg); URINE BENZODIAZEPINES SCREEN POSITIVE (Neg); URINE CANNABINOID SCREEN POSITIVE (Neg); URINE COCAINE SCREEN NEGATIVE (Neg); URINE METHADONE SCREEN NEGATIVE (Neg); URINE OPIATE SCREEN POSITIVE (Neg); URINE PHENCYCLIDINE SCREEN NEGATIVE (Neg)
[2023-06-14] MEDS ORDERED: phenobarbital inj 130 MG in normal saline 100ml IV soln 99 ML IV ONE (07:30)
[2023-06-14] MEDS ORDERED: chlordiazePOXIDE 25mg capsule PO ONE (16:30)
[2023-06-15] MEDS ORDERED: hydrOXYzine 25 MG tablet PO ONE (13:20)
[2023-06-15] MEDS ORDERED: traZODone 50mg tablet PO PRN (20:55)
[2023-06-15] MEDS ORDERED: LORazepam 1 MG tablet PO PRN (21:00)
[2023-06-15] MEDS: LORazepam 1 MG tablet PO PRN ×2 (21:29→21:30)
[2023-06-15] MEDS: NICOTINE POLACRILEX 2 MG LOZENGE BC PRN (21:30)
[2023-06-16] MEDS ORDERED: HYDR-3965 PO (02:26)
[2023-06-16] MEDS ORDERED: GABA-530 PO (02:27)
[2023-06-16] MEDS ORDERED: IBUP-1984 PO (02:30)
[2023-06-16] MEDS ORDERED: IBUP-1985 PO (03:43)
[2023-06-16] MEDS ORDERED: HYDROcodone/acetaminophen 5mg/325mg tablet PO PRN (03:45)
[2023-06-16] MEDS ORDERED: ibuprofen 200mg tablet PO PRN (03:50)
[2023-06-16 06:14] VITALS: BP 117/74; PULSE 100; TEMP 98.8; O2SAT 97
[2023-06-16] MEDS: NICOTINE POLACRILEX 2 MG LOZENGE BC PRN ×2 (06:30→09:52)
[2023-06-16 07:50] VITALS: RESP 16
[2023-06-16] MEDS ORDERED: gabapentin 300mg capsule PO SCH (08:00)
[2023-06-16] MEDS: LORazepam 1 MG tablet PO PRN (08:25)
== END 2023-06-16 11:56 | disposition still patient (30) ==
LOC: ER 21:33
DX: R45.851 Suicidal ideations (principal); Z20.822 Contact with and (suspected) exposure to COVID-19; F10.129 Alcohol abuse with intoxication, unspecified; J45.909 Unspecified asthma, uncomplicated; F12.90 Cannabis use, unspecified, uncomplicated; F14.10 Cocaine abuse, uncomplicated; R07.89 Other chest pain; Z91.09 Other allergy status, other than to drugs and biological substances; Z88.5 Allergy status to narcotic agent; Z88.7 Allergy status to serum and vaccine; Z98.890 Other specified postprocedural states; Y90.9 Presence of alcohol in blood, level not specified
CPT/HCPCS: 36415; 80053; 80305; 80320; 80329; 81001; 81025; 83735; 84443; 85025; 87811; 96365; 99285; J2560; J3490

== ENCOUNTER 2023-08-16 23:42 | Emergency (ER) | payer MEDICAID ==
[~2023-08-16] VITALS: Ht 154.9 cm; Wt 91.0 kg
[~2023-08-16 23:42] MED LIST changes: +GABA-530 PO; +HYDR-3965 PO; +IBUP-1984 PO; +IBUP-1985 PO; -NO HOME MEDS
[2023-08-16 23:48] VITALS: TEMP 98.2
[2023-08-17 02:04] LABS: URINE HCG NEGATIVE (NEG)
[2023-08-17 02:57] LABS: BASOPHILS % (AUTO) 0.5 % (0-1); EOSINOPHILS # (AUTO) 0.2 X10'3 (0-0.9); EOSINOPHILS % (AUTO) 1.9 % (0-6); HEMOGLOBIN 13.9 g/dl (12.0-16.0); MEAN CORPUSCULAR HEMOGLOBIN 30.4 PG (27.0-31.0); MEAN CORPUSCULAR HGB CONC 33.2 g/dL (33.0-36.5); MEAN CORPUSCULAR VOLUME 91.6 FL (78-98); MEAN PLATELET VOLUME 8.3 FL (7.4-10.4); MONOCYTES # (AUTO) 0.8 X10'3 (0-0.9); MONOCYTES % (AUTO) 8.7 % (2-12); NEUTROPHILS # (AUTO) 5.8 X10'3 (1.8-7.7); NEUTROPHILS % (AUTO) 65.9 % (42-75); PLATELET COUNT 231 X10'3 (140-440); RED BLOOD COUNT 4.58 X10'6 (4.20-5.60); RED CELL DISTRIBUTION WIDTH 15.3 % (11.5-14.5); WHITE BLOOD COUNT 8.8 X10'3 (4.5-11.0)
[2023-08-17] MEDS: acetaminophen 1,000mg/100ml IV 100 ML IV STA (03:01)
[2023-08-17 03:10] LABS: ALANINE AMINOTRANSFERASE 27 U/L (12-78); ALBUMIN 3.7 G/DL (3.4-5.0); ALBUMIN/GLOBULIN RATIO 1.1 (1.1-1.5); ALKALINE PHOSPHATASE 101 IU/L (46-116); ANION GAP 11 (8-16); ASPARTATE AMINO TRANSFERASE 25 U/L (10-37); BILIRUBIN,TOTAL 0.4 MG/DL (0.1-1.0); BLOOD UREA NITROGEN 13 MG/DL (7-18); BUN/CREATININE RATIO 15.3 (10.0-20.0); CALCIUM 8.1 MG/DL (8.5-10.1); CHLORIDE 104 MMOL/L (99-107); CREATININE 0.85 MG/DL (0.40-0.90); GLUCOSE 102 MG/DL (70-104); LIPASE 26 U/L (16-77); POTASSIUM 3.9 MMOL/L (3.5-5.1); SODIUM 140 MMOL/L (135-145); TOTAL CARBON DIOXIDE 25.1 MMOL/L (24-32); TOTAL PROTEIN 7.2 G/DL (6.4-8.2); eCRCL 73 ML/MIN; eGFR 79 ML/MIN
[2023-08-17] MEDS ORDERED: iohexol 300mg/ml 100ml inj. ONE (04:00)
[2023-08-17] MEDS: dicyclomine 10 MG capsule PO ONE (04:37)
[2023-08-17 04:38] LABS: BILIRUBIN,URINE NEGATIVE (Neg); CLARITY,URINE SLIGHTLY CLOUDY (Clear); COLOR,URINE YELLOW (Yellow); GLUCOSE, URINE NEGATIVE (Neg); KETONES,URINE NEGATIVE (Neg); LEUKOCYTE ESTERASE ,URINE NEGATIVE (Neg); NITRITES, URINE NEGATIVE (Neg); OCCULT BLOOD,URINE NEGATIVE (Neg); PH,URINE 8.5 (4.8-8.0); PROTEIN,URINE NEGATIVE (Neg)
[2023-08-17 04:41] LABS: UA COLLECTION TYPE CLN CATCH MIDSTREAM
[2023-08-17 05:03] LABS: RBC,URINE NONE SEEN /HPF (0-2); WBC,URINE 0-4 /HPF (0-4)
[2023-08-17 05:04] LABS: AMORPHOUS PHOSPHATES 2+; BACTERIA,URINE NONE SEEN /HPF (Neg); MUCUS STRANDS NONE SEEN /LPF (Neg); SQUAMOUS EPITHELIAL CELL,UR FEW /LPF (FEW)
[2023-08-17] MEDS ORDERED: HYDR30CR79 TOP (05:31)
[2023-08-17 05:39] VITALS: BP 132/98; PULSE 87; RESP 18; O2SAT 97
[2023-08-17 10:10] LABS: OCCULT BLOOD STOOL NEGATIVE (Neg)
== END 2023-08-17 05:40 | disposition home or self-care (01) ==
LOC: ER 23:42
DX: K64.9 Unspecified hemorrhoids (principal); R10.31 Right lower quadrant pain; J45.909 Unspecified asthma, uncomplicated; F12.90 Cannabis use, unspecified, uncomplicated; Z91.09 Other allergy status, other than to drugs and biological substances; Z88.5 Allergy status to narcotic agent; Z79.1 Long term (current) use of non-steroidal anti-inflammatories (NSAID); Z79.899 Other long term (current) drug therapy; Z98.890 Other specified postprocedural states
CPT/HCPCS: 36415; 80053; 81001; 81025; 82272; 83690; 85025; 96374; 99285; J0131; J3490; Q9967; 74178

== ENCOUNTER 2023-09-01 02:51 | Inpatient (IN) | payer MEDICAID ==
[~2023-09-01] VITALS: Ht 154.9 cm; Wt 91.0 kg
[~2023-09-01 02:51] MED LIST changes: +HYDR30CR79 TOP
[2023-09-01 03:52] LABS: BASOPHILS # (AUTO) 0.1 X10'3 (0-0.2); BASOPHILS % (AUTO) 0.9 % (0-1); EOSINOPHILS # (AUTO) 0.2 X10'3 (0-0.9); EOSINOPHILS % (AUTO) 1.9 % (0-6); HEMATOCRIT 43.5 % (35.0-45.0); HEMOGLOBIN 14.7 g/dl (12.0-16.0); LYMPHOCYTES # (AUTO) 2.9 X10'3 (1.1-4.8); LYMPHOCYTES % (AUTO) 32.1 % (21-51); MEAN CORPUSCULAR HEMOGLOBIN 30.9 PG (27.0-31.0); MEAN CORPUSCULAR HGB CONC 33.7 g/dL (33.0-36.5); MEAN CORPUSCULAR VOLUME 91.5 FL (78-98); MEAN PLATELET VOLUME 7.5 FL (7.4-10.4); MONOCYTES # (AUTO) 0.7 X10'3 (0-0.9); MONOCYTES % (AUTO) 7.8 % (2-12); NEUTROPHILS # (AUTO) 5.1 X10'3 (1.8-7.7); NEUTROPHILS % (AUTO) 57.3 % (42-75); PLATELET COUNT 351 X10'3 (140-440); RED BLOOD COUNT 4.76 X10'6 (4.20-5.60); RED CELL DISTRIBUTION WIDTH 14.5 % (11.5-14.5); WHITE BLOOD COUNT 8.9 X10'3 (4.5-11.0)
[2023-09-01 04:10] LABS: ALBUMIN 3.8 G/DL (3.4-5.0); ANION GAP 12 (8-16); BLOOD UREA NITROGEN 12 MG/DL (7-18); BUN/CREATININE RATIO 14.1 (10.0-20.0); CALCIUM 8.3 MG/DL (8.5-10.1); CHLORIDE 106 MMOL/L (99-107); CREATININE 0.85 MG/DL (0.40-0.90); ETHANOL 278 MG/DL (<10); GLUCOSE 106 MG/DL (70-104); POTASSIUM 3.8 MMOL/L (3.5-5.1); SODIUM 142 MMOL/L (135-145); THYROID STIMULATING HORMONE 2.08 ulU/ml (0.34-4.50); TOTAL CARBON DIOXIDE 24.4 MMOL/L (24-32); eCRCL 73 ML/MIN; eGFR 79 ML/MIN
[2023-09-01 04:34] LABS: URINE HCG NEGATIVE (NEG)
[2023-09-01 04:47] LABS: URINE AMPHETAMINE SCREEN NEGATIVE (Neg); URINE BARBITUATE SCREEN NEGATIVE (Neg); URINE BENZODIAZEPINES SCREEN NEGATIVE (Neg); URINE CANNABINOID SCREEN POSITIVE (Neg); URINE COCAINE SCREEN NEGATIVE (Neg); URINE METHADONE SCREEN NEGATIVE (Neg); URINE OPIATE SCREEN NEGATIVE (Neg); URINE PHENCYCLIDINE SCREEN NEGATIVE (Neg)
[2023-09-01 04:51] LABS: BILIRUBIN,URINE NEGATIVE (Neg); COLOR,URINE YELLOW (Yellow); GLUCOSE, URINE NEGATIVE (Neg); KETONES,URINE NEGATIVE (Neg); LEUKOCYTE ESTERASE ,URINE NEGATIVE (Neg); NITRITES, URINE NEGATIVE (Neg); OCCULT BLOOD,URINE MODERATE (Neg); PROTEIN,URINE NEGATIVE (Neg); UROBILINOGEN,URINE 0.2 E.U/dL (0.2-1.0)
[2023-09-01 04:56] LABS: CLARITY,URINE SLIGHTLY CLOUDY (Clear); UA COLLECTION TYPE CLN CATCH MIDSTREAM
[2023-09-01 05:04] LABS: RBC,URINE 0-2 /HPF (0-2); WBC,URINE 0-4 /HPF (0-4)
[2023-09-01 05:05] LABS: BACTERIA,URINE 1+ /HPF (Neg); MUCUS STRANDS NONE SEEN /LPF (Neg); SQUAMOUS EPITHELIAL CELL,UR MANY /LPF (FEW)
[2023-09-01] MEDS ORDERED: ESCI-8 PO (09:16)
[2023-09-01] MEDS ORDERED: ARIP15TA19 PO (09:16)
[2023-09-01] MEDS ORDERED: PROP20TA6 PO (09:16)
[2023-09-01] MEDS ORDERED: TRAZ-256 PO (09:26)
[2023-09-01] MEDS ORDERED: magnesium Cl slow-release 64mg tablet PO PRN (10:25)
[2023-09-01] MEDS ORDERED: magnesium 4gm in 100ml NS 100 ML IV PRN (10:25)
[2023-09-01] MEDS ORDERED: haloperidol 5mg tablet PO PRN ×2 (10:25)
[2023-09-01] MEDS ORDERED: potassium Cl 20 mEq SR tablet PO PRN ×2 (10:25)
[2023-09-01] MEDS ORDERED: potassium Cl 40MEQ/1/2NS 520ml 520 ML IV PRN (10:25)
[2023-09-01] MEDS ORDERED: haloperidol lactate 5mg/ml inj IM PRN ×2 (10:25)
[2023-09-01] MEDS ORDERED: magnesium hydroxide 30ml (MOM) UD suspension PO PRN (10:25)
[2023-09-01] MEDS ORDERED: LORazepam 2 mg/ml vial IV PRN ×2 (10:25)
[2023-09-01] MEDS: potassium Cl 20mEq in NS 1,000 ML IV SCH (10:25)
[2023-09-01] MEDS ORDERED: magnesium 2GM in 50ml NS 50 ML IV PRN (10:25)
[2023-09-01] MEDS ORDERED: mag hydrox/Alum hydrox/simeth 30ml oral suspension PO PRN (10:25)
[2023-09-01] MEDS ORDERED: acetaminophen 325mg tablet PO PRN (10:25)
[2023-09-01] MEDS ORDERED: ondansetron/PF 4mg/2ml inj IV PRN (10:25)
[2023-09-01 11:07] LABS: POTASSIUM 3.8 MMOL/L (3.5-5.1)
[2023-09-01] MEDS: LORazepam 1 MG tablet PO PRN (11:24)
[2023-09-01] MEDS: pantoprazole 40mg Tablet.DR PO SCH (11:56)
[2023-09-01] MEDS: propranolol 10mg tablet PO SCH (12:38)
[2023-09-01] MEDS: docusate sod 100mg capsule PO SCH (20:00)
[2023-09-01] MEDS: K and/or MAG REPLACEMENT MC SCH (20:00)
[2023-09-01] MEDS: traZODone 50mg tablet PO SCH (21:33)
[2023-09-02 02:44] LABS: PROTHROMBIN TIME 10.9 SECONDS (9.0-12.0)
[2023-09-02 02:49] LABS: ALANINE AMINOTRANSFERASE 25 U/L (12-78); ALBUMIN 3.1 G/DL (3.4-5.0); ALBUMIN/GLOBULIN RATIO 0.8 (1.1-1.5); ALKALINE PHOSPHATASE 74 IU/L (46-116); AMYLASE 30 U/L (25-115); ANION GAP 9 (8-16); ASPARTATE AMINO TRANSFERASE 21 U/L (10-37); BILIRUBIN,TOTAL 0.4 MG/DL (0.1-1.0); BLOOD UREA NITROGEN 12 MG/DL (7-18); BUN/CREATININE RATIO 16.2 (10.0-20.0); CALCIUM 7.9 MG/DL (8.5-10.1); CHLORIDE 105 MMOL/L (99-107); CREATININE 0.74 MG/DL (0.40-0.90); GLUCOSE 87 MG/DL (70-104); LIPASE 20 U/L (16-77); SODIUM 140 MMOL/L (135-145); TOTAL CARBON DIOXIDE 26.2 MMOL/L (24-32); TOTAL PROTEIN 6.9 G/DL (6.4-8.2); eCRCL 84 ML/MIN; eGFR > 90 ML/MIN
[2023-09-02 03:28] LABS: BASOPHILS % (AUTO) 0.3 % (0-1); EOSINOPHILS # (AUTO) 0.1 X10'3 (0-0.9); EOSINOPHILS % (AUTO) 1.5 % (0-6); HEMATOCRIT 37.5 % (35.0-45.0); HEMOGLOBIN 12.8 g/dl (12.0-16.0); LYMPHOCYTES # (AUTO) 1.6 X10'3 (1.1-4.8); LYMPHOCYTES % (AUTO) 20.9 % (21-51); MEAN CORPUSCULAR HEMOGLOBIN 31.3 PG (27.0-31.0); MEAN CORPUSCULAR HGB CONC 34.3 g/dL (33.0-36.5); MEAN CORPUSCULAR VOLUME 91.5 FL (78-98); MEAN PLATELET VOLUME 7.8 FL (7.4-10.4); MONOCYTES # (AUTO) 0.7 X10'3 (0-0.9); MONOCYTES % (AUTO) 8.8 % (2-12); NEUTROPHILS # (AUTO) 5.1 X10'3 (1.8-7.7); NEUTROPHILS % (AUTO) 68.5 % (42-75); PLATELET COUNT 259 X10'3 (140-440); RED CELL DISTRIBUTION WIDTH 14.6 % (11.5-14.5); WHITE BLOOD COUNT 7.4 X10'3 (4.5-11.0)
[2023-09-02] MEDS: multivitamins, therapeutics tablet PO SCH (08:13)
[2023-09-02] MEDS: aripiprazole 5mg tablet PO SCH (08:13)
[2023-09-02] MEDS: enoxaparin 40mg/0.4ml syringe SUBCUT SCH (08:13)
[2023-09-02] MEDS: ESCITALOPRAM 10 mg tablet 10 MG TABLET PO SCH (08:14)
[2023-09-02 09:30] VITALS: RESP 16; O2SAT 99
[2023-09-02 10:00] VITALS: BP 139/94; PULSE 106; RESP 18; TEMP 97.7; O2SAT 99
[2023-09-02 18:00] VITALS: BP 133/86; PULSE 87; RESP 18; TEMP 97.4; O2SAT 97
[2023-09-02 19:00] VITALS: BP 133/86; PULSE 87; RESP 18; TEMP 97.4; O2SAT 97
[2023-09-02] MEDS: HYDROcodone/acetaminophen 5mg/325mg tablet PO PRN (19:28)
[2023-09-02 19:30] VITALS: RESP 18; O2SAT 97
[2023-09-02 21:45] VITALS: BP 142/89; PULSE 89; RESP 15; TEMP 98.5; O2SAT 97
[2023-09-03] MEDS: NICOTINE POLACRILEX 2 MG LOZENGE BC PRN (02:35)
[2023-09-03 06:00] VITALS: BP 119/71; PULSE 85; RESP 16; TEMP 98.3; O2SAT 99
[2023-09-03 06:46] LABS: BASOPHILS % (AUTO) 0.4 % (0-1); EOSINOPHILS # (AUTO) 0.1 X10'3 (0-0.9); EOSINOPHILS % (AUTO) 1.6 % (0-6); HEMATOCRIT 36.3 % (35.0-45.0); HEMOGLOBIN 12.4 g/dl (12.0-16.0); LYMPHOCYTES # (AUTO) 1.6 X10'3 (1.1-4.8); MEAN CORPUSCULAR HGB CONC 34.1 g/dL (33.0-36.5); MEAN PLATELET VOLUME 7.8 FL (7.4-10.4); MONOCYTES # (AUTO) 0.6 X10'3 (0-0.9); MONOCYTES % (AUTO) 8.7 % (2-12); NEUTROPHILS % (AUTO) 67.3 % (42-75); PLATELET COUNT 243 X10'3 (140-440); RED BLOOD COUNT 3.99 X10'6 (4.20-5.60); RED CELL DISTRIBUTION WIDTH 14.6 % (11.5-14.5); WHITE BLOOD COUNT 7.4 X10'3 (4.5-11.0)
[2023-09-03 07:11] LABS: PROTHROMBIN TIME 10.7 SECONDS (9.0-12.0)
[2023-09-03 07:23] LABS: ALANINE AMINOTRANSFERASE 27 U/L (12-78); ALBUMIN 2.9 G/DL (3.4-5.0); ALBUMIN/GLOBULIN RATIO 0.7 (1.1-1.5); ALKALINE PHOSPHATASE 76 IU/L (46-116); AMYLASE 26 U/L (25-115); ANION GAP 7 (8-16); ASPARTATE AMINO TRANSFERASE 23 U/L (10-37); BILIRUBIN,TOTAL 0.4 MG/DL (0.1-1.0); BLOOD UREA NITROGEN 9 MG/DL (7-18); BUN/CREATININE RATIO 13.2 (10.0-20.0); CALCIUM 7.8 MG/DL (8.5-10.1); CHLORIDE 106 MMOL/L (99-107); CREATININE 0.68 MG/DL (0.40-0.90); GLUCOSE 79 MG/DL (70-104); LIPASE 25 U/L (16-77); PHOSPHORUS 3.6 MG/DL (2.3-4.5); POTASSIUM 4.1 MMOL/L (3.5-5.1); SODIUM 139 MMOL/L (135-145); TOTAL CARBON DIOXIDE 25.8 MMOL/L (24-32); TOTAL PROTEIN 6.8 G/DL (6.4-8.2); eCRCL 91 ML/MIN; eGFR > 90 ML/MIN
[2023-09-03 07:37] VITALS: RESP 16; O2SAT 99
[2023-09-03 10:00] VITALS: BP 127/74; PULSE 91; RESP 16; TEMP 97.2; O2SAT 96
[2023-09-03 18:00] VITALS: BP 145/85; PULSE 91; RESP 16; TEMP 97.1; O2SAT 98
[2023-09-03 20:00] VITALS: RESP 16; O2SAT 99
[2023-09-03 22:00] VITALS: BP 130/91; PULSE 87; RESP 18; TEMP 98.4; O2SAT 99
[2023-09-03] MEDS: HYDROcodone/acetaminophen 10/325mg tab PO PRN (22:25)
[2023-09-04 06:00] VITALS: BP 128/83; PULSE 89; RESP 18; TEMP 98; O2SAT 98
[2023-09-04 06:55] LABS: BASOPHILS % (AUTO) 0.5 % (0-1); EOSINOPHILS # (AUTO) 0.1 X10'3 (0-0.9); EOSINOPHILS % (AUTO) 1.9 % (0-6); HEMATOCRIT 37.6 % (35.0-45.0); HEMOGLOBIN 12.8 g/dl (12.0-16.0); LYMPHOCYTES # (AUTO) 1.7 X10'3 (1.1-4.8); LYMPHOCYTES % (AUTO) 24.7 % (21-51); MEAN CORPUSCULAR HEMOGLOBIN 30.9 PG (27.0-31.0); MEAN CORPUSCULAR HGB CONC 33.9 g/dL (33.0-36.5); MEAN CORPUSCULAR VOLUME 91.3 FL (78-98); MEAN PLATELET VOLUME 7.4 FL (7.4-10.4); MONOCYTES # (AUTO) 0.6 X10'3 (0-0.9); MONOCYTES % (AUTO) 8.4 % (2-12); NEUTROPHILS # (AUTO) 4.4 X10'3 (1.8-7.7); NEUTROPHILS % (AUTO) 64.5 % (42-75); PLATELET COUNT 238 X10'3 (140-440); RED BLOOD COUNT 4.12 X10'6 (4.20-5.60); RED CELL DISTRIBUTION WIDTH 14.3 % (11.5-14.5); WHITE BLOOD COUNT 6.8 X10'3 (4.5-11.0)
[2023-09-04 07:07] LABS: PROTHROMBIN TIME 10.8 SECONDS (9.0-12.0)
[2023-09-04 07:16] LABS: ALANINE AMINOTRANSFERASE 22 U/L (12-78); ALBUMIN/GLOBULIN RATIO 0.8 (1.1-1.5); ALKALINE PHOSPHATASE 76 IU/L (46-116); AMYLASE 26 U/L (25-115); ANION GAP 9 (8-16); ASPARTATE AMINO TRANSFERASE 19 U/L (10-37); BILIRUBIN,TOTAL 0.4 MG/DL (0.1-1.0); BLOOD UREA NITROGEN 8 MG/DL (7-18); BUN/CREATININE RATIO 11.9 (10.0-20.0); CALCIUM 7.8 MG/DL (8.5-10.1); CHLORIDE 105 MMOL/L (99-107); CREATININE 0.67 MG/DL (0.40-0.90); GLUCOSE 79 MG/DL (70-104); LIPASE 22 U/L (16-77); MAGNESIUM 1.8 MG/DL (1.5-2.4); PHOSPHORUS 4.1 MG/DL (2.3-4.5); POTASSIUM 4.1 MMOL/L (3.5-5.1); SODIUM 138 MMOL/L (135-145); TOTAL CARBON DIOXIDE 23.7 MMOL/L (24-32); TOTAL PROTEIN 6.8 G/DL (6.4-8.2); eCRCL 93 ML/MIN; eGFR > 90 ML/MIN
[2023-09-04 08:00] VITALS: RESP 18; O2SAT 98
[2023-09-04 10:00] VITALS: BP 108/62; PULSE 87; RESP 18; TEMP 98.1; O2SAT 95
[2023-09-05] MEDS ORDERED: thiamine 100mg tablet PO SCH (08:00)
[2023-09-05] MEDS ORDERED: LORazepam 1 MG tablet PO PRN (10:25)
[2023-09-05] MEDS ORDERED: LORazepam 2 mg/ml vial IV PRN (10:25)
[2023-09-06] MEDS ORDERED: folic acid 1mg tablet PO SCH (08:00)
== END 2023-09-04 12:21 | disposition home or self-care (01) | DRG 775 ==
LOC: ER 02:52 → ED HOLD 10:28 → EDBEDREQ 09-02 05:54 → ORTHO 4S 09-02 09:09
PROVIDERS: ADMIT Internal Medicine; ATTEND Internal Medicine
DX: F10.121 Alcohol abuse with intoxication delirium (principal); R45.851 Suicidal ideations; J45.909 Unspecified asthma, uncomplicated; F32.A Depression, unspecified; Z20.822 Contact with and (suspected) exposure to COVID-19; F17.290 Nicotine dependence, other tobacco product, uncomplicated; G89.29 Other chronic pain; Y90.9 Presence of alcohol in blood, level not specified; F10.131 Alcohol abuse with withdrawal delirium; F41.9 Anxiety disorder, unspecified; Z88.8 Allergy status to other drugs, medicaments and biological substances; Z80.0 Family history of malignant neoplasm of digestive organs; Z79.899 Other long term (current) drug therapy; Z88.0 Allergy status to penicillin; Z88.7 Allergy status to serum and vaccine; Z91.048 Other nonmedicinal substance allergy status; Z90.49 Acquired absence of other specified parts of digestive tract; Z98.891 History of uterine scar from previous surgery
CPT/HCPCS: 36415; 80048; 80053; 80305; 80320; 81001; 81025; 82150; 83690; 83735; 84100; 84132; 84443; 85025; 85610; 87081; 87811; 99285; A6209; G0378; J1650; J3480